=== PATIENT | female | born 1935 | race Caucasian/White ===

== ENCOUNTER 2019-07-07 16:12 | Emergency (ER) | payer SELFPAY ==
[~2019-07-07] VITALS: Ht 149.9 cm; Wt 49.9 kg
[~2019-07-07 16:12] MED LIST: ALPR0.254; BENA5TAB5; BUPR150T6; CARV3.1240; ESCI20TA; FURO20TA3; HYDR200T36; LEVO100T8; OMEP20TA44; SIMV-13; SPIR25TA8; TEMA15CA
[2019-07-07 20:07] VITALS: BP 99/70
== END 2019-07-07 20:09 | disposition home or self-care (01) ==
LOC: EDBD 16:12 → ER 16:16
DX: N39.0 Urinary tract infection, site not specified (principal); K44.9 Diaphragmatic hernia without obstruction or gangrene; Z88.6 Allergy status to analgesic agent; Z88.2 Allergy status to sulfonamides; Z91.041 Radiographic dye allergy status
CPT/HCPCS: 74176; 81002